=== PATIENT | female | born 1965 | race Caucasian/White ===

== ENCOUNTER → 2017-07-09 | Outpatient (CLI) | payer BC | LOC: MAMMO 11:40 | DX: Z12.31 Encounter for screening mammogram for malignant neoplasm of breast (principal) | CPT/HCPCS: G0202 ==

== ENCOUNTER 2017-10-31 20:08 | Emergency (ER) | payer BC ==
[~2017-10-31] VITALS: Ht 157.5 cm; Wt 61.4 kg
[2017-10-31 21:40] VITALS: BP 106/68
== END 2017-10-31 21:45 | disposition home or self-care (01) ==
LOC: ED 20:08
DX: S61.210A Laceration without foreign body of right index finger without damage to nail, initial encounter (principal); W23.1XXA Caught, crushed, jammed, or pinched between stationary objects, initial encounter; I10 Essential (primary) hypertension; Z23 Encounter for immunization; F17.210 Nicotine dependence, cigarettes, uncomplicated
CPT/HCPCS: 90715

== ENCOUNTER 2017-11-12 16:45 | Emergency (ER) | payer BC | END 2017-11-12 17:00 | disposition home or self-care (01) | LOC: ED 16:45 | DX: Z48.02 Encounter for removal of sutures (principal) ==